=== PATIENT | male | born 1975 | race Two or more races ===

== ENCOUNTER 2016-09-18 21:44 | Emergency (ER) | payer OTHER ==
[2016-09-18 22:02] VITALS: BP 137/84
[2016-09-18] MEDS ORDERED: HYDROcodone/ACETAMIN 5-325 MG* 1 TAB PO ONE (22:36)
[2016-09-18] MEDS ORDERED: Ibuprofen TAB* 600 MG PO ONE (22:37)
[2016-09-18] MEDS ORDERED: Silver Sulfadiazine 1%* 20 GM TOPICAL ONE (22:38)
--- NOTE | 2016-11-01 17:24 | UC ---
Suzanne Gtz Matthew, scribed for Jessica Covington MD on 09/18/16 at 2235 . HPI BURN - HPI Summary HPI Summary: A 41 y/o male presents to [facility] with a burn to the right palm of his hand since 21:30. The pain is rated 8/10 in severity. The patient was working in his lab when he touch a hot plate and burnt the palm of his hand. Associated symptoms include pain, blisters and erythema. His last tetanus shot was approximately 20 years ago. The patient refused a tetanus shot. The patient denies an allergy to sliver or heavy metals. He does not want steroids. - History of Current Complaint Chief Complaint: UCBurn Stated Complaint: BURN ON HAND Hx Obtained From: Patient Occurred: Hours Ago Length of Exposure: Seconds Onset Severity: Moderate Current Severity: Moderate Pain Intensity: 8 Pain Scale Used: 0-10 Numeric Location: RUE - RT Palm Character: Direct Thermal Contact Associated Signs & Symptoms: Positive: Negative - Allergy/Home Medications Allergies/Adverse Reactions: Allergies Allergy/AdvReac Type Severity Reaction Status Date / Time No Known Allergies Allergy Verified 09/18/16 22:02 Home Medications: Home Medications Bliss-3 Fatty Acids [Bliss 3] 1 cap PO 09/18/16 [History] Zinc [Zinc Methionate] 50 mg PO 09/18/16 [History] PMH/Surg Hx/FS Hx/Imm Hx Endocrine History Of: Denies: Diabetes, Thyroid Disease Cardiovascular History Of: Denies: Cardiac Disorders, Hypertension Respiratory History Of: Denies: COPD, Asthma GI/ History Of: Denies: Ulcer - Surgical History Surgical History: Yes Surgery Procedure, Year, and Place: appendix - Family History Known Family History: Positive: Diabetes - Mother - Social History Alcohol Use: None Substance Use Type: None Smoking Status (MU): Never Smoked Tobacco Review of Systems Constitutional: Negative Skin: Other - first and second degree burn, blister, pain, and erythema Eyes: Negative ENT: Negative Respiratory: Negative Cardiovascular: Negative Gastrointestinal: Negative Genitourinary: Negative Motor: Negative Neurovascular: Negative Musculoskeletal: Negative Neurological: Negative Psychological: Negative All Other Systems Reviewed And Are Negative: Yes Physical Exam Triage Information Reviewed: Yes Appearance: Well-Nourished Vital Signs: Initial Vital Signs Temp 97.6 F 09/18/16 21:56 Pulse 80 02/17/17 21:56 Resp 18 09/18/16 21:56 BP 137/84 09/18/16 21:56 Pulse Ox 100 09/18/16 21:56 Vital Signs Reviewed: Yes Eye Exam: Normal ENT Exam: Normal Neck exam: Normal Neck: Positive: No Lymphadenopathy Respiratory Exam: Normal - No dyspnea; no tachypnea; normal respiratory rate Cardiovascular Exam: Normal - good general skin color, good capillary refill Cardiovascular: Positive: RRR, No Murmur Abdominal Exam: Normal Musculoskeletal Exam: Normal Musculoskeletal: Positive: Strength Intact Neurological Exam: Normal - non-focal; grossly intact Psychological Exam: Normal - conversing easily and appropriately Skin Exam: Other - Total burn includes first and second to the right palm with an area of: Length 7.8cm, width 3.8cm, The second degree burn includes an area of: Length - 2.6cm, Width - 1.8cm Burn Calculation - [place] Formula for Fluid Resuscitation Weight: 80 kg 24 -Hour Fluid Replacement: 0.0 Course/Dx Burn - Course Course Of Treatment: Reviewed burn care and f/u recommendation. See avs. Tet utd. - Diagnoses Clinic Provider Diagnoses: 2nd degree burn palm of right hand Discharge - Discharge Plan Condition: Stable Disposition: HOME Prescriptions: HYDROcodone/ACETAMIN 5-325 MG* [[place] 5-325 TAB*] 1 tab PO Q4H PRN #12 tab MDD 6 PRN Reason: Pain Patient Education Materials: Second Degree Burn (ED) Referrals: [facility] SHREE Johnson [Primary Care Provider] - Additional Instructions: Please take vitamin E (200IU or 400IU) and vitamin C(500mg - 1000mg) once you get home with food. Dressing change once daily - THIN layer to affected area once daily, gauze, roll gauze. Elevate your hand as much as possible. Ice ok, but careful not to cause a cold burn. Follow up for wound check in 2-3 days. Please seek medical attention sooner for worse or new problems in the meantime. Check your tetanus immunization status. Strongly consider tetanus booster update if more than 10 years. The documentation as recorded by the Suzanne cartagena Matthew accurately reflects the service I personally performed and the decisions made by , Jessica Covington MD.
== END 2016-09-18 23:09 | disposition home or self-care (01) ==
LOC: UCEAST 21:44
DX: T23.251A Burn of second degree of right palm, initial encounter (principal); X19.XXXA Contact with other heat and hot substances, initial encounter; Y93.89 Activity, other specified; Y92.89 Other specified places as the place of occurrence of the external cause
CPT/HCPCS: 99213; A9270-GY; G0463